=== PATIENT | female | born 1990 | race Two or more races ===

== ENCOUNTER 2021-11-22 20:50 | Inpatient (IN) | payer BC, OTHER ==
[2021-11-22] MEDS ORDERED: PROMETHAZINE HCL 25 MG/1 ML VIAL ONE (21:51)
[2021-11-22] MEDS ORDERED: BUTORPHANOL TARTRATE 2 MG/ML VIAL ONE (21:51)
[2021-11-22] MEDS ORDERED: PROMETHAZINE HCL 25 MG/1 ML VIAL IVPUSH ONE (22:09)
[2021-11-22] MEDS ORDERED: BUTORPHANOL TARTRATE 2 MG/ML VIAL IVPB ONE (22:09)
[2021-11-22] MEDS ORDERED: AMPICILLIN - 2 GM in SODIUM CHLORIDE 100 ML IVPB ONE (22:10)
[2021-11-22] MEDS ORDERED: ELECTROLYTE-148 SOLN 1,000 ML IV SCH (22:15)
[2021-11-22] MEDS ORDERED: AMPICILLIN SODIUM 2 GM VIAL ONE (22:27)
[2021-11-22 22:40] LABS: BASO % 0.3 % (0-2.0); EOS % 0.9 % (0-4.5); HEMATOCRIT 37.6 % (32.4-45.2); HEMOGLOBIN 12.6 GM/dL (10.7-15.3); LYMPH % 30.4 % (8-40); MCH 29.7 pg (25.7-33.7); MCHC 33.4 g/dl (32.0-36.0); MEAN CELL VOLUME 88.9 fl (80-96); MEAN PLT VOLUME 8.1 fl (7.5-11.1); MONO % 6.1 % (3.8-10.2); NEUT % 62.3 % (42.8-82.8); PLATELET COUNT 295 10^3/uL (134-434); RBC 4.23 M/mm3 (3.60-5.2); RDW 14.5 % (11.6-15.6); WHITE BLOOD COUNT 7.3 K/mm3 (4.0-10.0)
[2021-11-22 22:47] LABS: INR 0.98 (0.83-1.09); PROTHROMBIN TIME (PATIENT) 11.3 SEC (9.7-13.0)
[2021-11-22 22:50] LABS: ACTIVATED PTT 27.2 SECONDS (25.2-36.5)
[2021-11-22] MEDS ORDERED: OXYTOCIN 20 UNITS in 0.9% NS 20 UNIT/1,000 ML INFUS.BAG IV ONE (22:54)
[2021-11-22 22:58] LABS: CALCIUM 8.5 mg/dL (8.5-10.1)
[2021-11-22 22:59] LABS: BLOOD UREA NITROGEN 5.6 mg/dL (7-18)
[2021-11-22 23:02] LABS: CREATININE 0.6 mg/dL (0.55-1.3)
[2021-11-22] MEDS ORDERED: METHYLERGONOVINE MALEATE 0.2 MG/1 ML AMP IM PRN (23:27)
[2021-11-22] MEDS ORDERED: BISACODYL 10 MG SUPP.RECT RC PRN (23:27)
[2021-11-22] MEDS ORDERED: oxyCODONE HCL 5 MG TABLET PO PRN (23:27)
[2021-11-22] MEDS ORDERED: WITCH HAZEL 50% (TUCKS) 40 PAD/JAR PAD TP PRN (23:27)
[2021-11-22] MEDS ORDERED: BENZOCAINE 20% 57 GM BOTTLE TP PRN (23:27)
[2021-11-22] MEDS ORDERED: ACETAMINOPHEN 325 MG TABLET (FP) PO PRN (23:27)
[2021-11-22] MEDS ORDERED: BENZOCAINE 28 GM HEMORRHOIDAL OINTMENT TP PRN (23:27)
[2021-11-22] MEDS ORDERED: OXYTOCIN 20 UNITS in 0.9% NS 20 UNIT/1,000 ML INFUS.BAG IV SCH (23:30)
[2021-11-22 23:54] LABS: HIV INTERPRETATION NEGATIVE (NEGATIVE)
[2021-11-23 00:02] VITALS: BMI 33.7
[2021-11-23] MEDS: IBUPROFEN 600 MG TABLET (FP) PO PRN ×3 (02:02→19:48)
[2021-11-23] MEDS ORDERED: AMPICILLIN - 1 GM in SODIUM CHLORIDE 100 ML IVPB SCH (02:15)
[2021-11-23 08:44] LABS: BASO % 0.2 % (0-2.0); EOS % 0.3 % (0-4.5); HEMATOCRIT 32.8 % (32.4-45.2); HEMOGLOBIN 11.4 GM/dL (10.7-15.3); LYMPH % 17.7 % (8-40); MCHC 34.7 g/dl (32.0-36.0); MEAN CELL VOLUME 89.2 fl (80-96); MEAN PLT VOLUME 7.7 fl (7.5-11.1); MONO % 6.5 % (3.8-10.2); NEUT % 75.3 % (42.8-82.8); PLATELET COUNT 253 10^3/uL (134-434); RBC 3.68 M/mm3 (3.60-5.2); RDW 14.4 % (11.6-15.6); WHITE BLOOD COUNT 10.6 K/mm3 (4.0-10.0)
[2021-11-23] MEDS: PRENATAL VITAMINS W/ FOLIC ACID TABLET (FP) PO SCH (09:14)
[2021-11-23] MEDS ORDERED: SENNOSIDES/DOCUSATE COMBO (SENNA PLUS) TABLET (UD) PO PRN (22:00)
[2021-11-23 22:21] VITALS: PULSE 91
[2021-11-24] MEDS: IBUPROFEN 600 MG TABLET (FP) PO PRN (05:31)
[2021-11-24] MEDS: PRENATAL VITAMINS W/ FOLIC ACID TABLET (FP) PO SCH (09:18)
[2021-11-24 10:11] VITALS: BP 121/59; RESP 18; TEMP 98.1
== END 2021-11-24 11:30 | disposition home or self-care (01) | DRG 807 ==
LOC: JLDR 20:50 → J3W 11-23 01:39
PROVIDERS: ADMIT Obstetrics & Gynecology; ATTEND Obstetrics & Gynecology
PROC: 10E0XZZ Delivery of Products of Conception, External Approach (ICD-10-PCS; principal; 2021-11-22)
PROC: 0HQ9XZZ Repair Perineum Skin, External Approach (ICD-10-PCS; 2021-11-22)
DX: O70.0 First degree perineal laceration during delivery (principal); Z37.0 Single live birth; Z3A.37 37 weeks gestation of pregnancy
CPT/HCPCS: 36415; 59409; 80048; 85025; 85610; 85730; 86780; 86850; 86900; 86901; 87389; C9803-CS; U0003; U0005